=== PATIENT | female | born 2000 | race Two or more races ===

== ENCOUNTER 2024-04-24 12:34 | Emergency (ER) | payer OTHER, SELFPAY ==
--- NOTE | ~2024-04-24 | XR_ITS ---
EXAMINATION: XR SHOULDER, LEFT CLINICAL INFORMATION: Shoulder pain and injury COMPARISON: None available. TECHNIQUE: Three views of the left shoulder. FINDINGS: The bones and soft tissues are normal. No fracture. Glenohumeral and acromioclavicular alignment is anatomic with normal joint space. No abnormal soft tissue calcifications. XR/XR shoulder LT min 2V IMPRESSION: Normal left shoulder.
[2024-04-24 13:21] VITALS: BP 137/92; PULSE 95; RESP 16; TEMP 36.4; O2SAT 100; BMI 24.5
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
[2024-04-24 16:40] VITALS: BP 127/76; PULSE 85; RESP 16; TEMP 36.7; O2SAT 100
[2024-04-24 18:06] VITALS: BP 127/76; PULSE 85; RESP 16; TEMP 36.7; O2SAT 100
== END 2024-04-24 18:06 | disposition home or self-care (01) ==
PROVIDERS: Emergency Provider Student in an Organized Health Care Education/Training Program; PCP Pediatrics
DX: M54.12 Radiculopathy, cervical region (principal); M25.512 Pain in left shoulder
CPT/HCPCS: 73030; 99282; 99283